=== PATIENT | female | born 1970 | race Caucasian/White ===

== ENCOUNTER → 2018-11-05 | Outpatient (CLI) | payer OTHER | END | disposition home or self-care (01) | LOC: CFH 15:16 | PROVIDERS: ATTEND Nurse Practitioner Family | DX: Z12.31 Encounter for screening mammogram for malignant neoplasm of breast (principal) | CPT/HCPCS: 77063; 77067 ==

== ENCOUNTER → 2019-11-01 | Outpatient (CLI) | payer OTHER | END | disposition home or self-care (01) | LOC: RAD 11:08 | PROVIDERS: ATTEND Internal Medicine Infectious Disease | DX: Z45.2 Encounter for adjustment and management of vascular access device (principal); T85.734A Infection and inflammatory reaction due to implanted electronic neurostimulator, generator, initial encounter; G43.909 Migraine, unspecified, not intractable, without status migrainosus; J45.909 Unspecified asthma, uncomplicated; G89.4 Chronic pain syndrome; F11.21 Opioid dependence, in remission; F41.9 Anxiety disorder, unspecified; F32.9 Major depressive disorder, single episode, unspecified; Z79.2 Long term (current) use of antibiotics | CPT/HCPCS: 36573; C1751 ==

== ENCOUNTER 2019-11-29 14:27 | Outpatient (CLI) | payer OTHER | END 2019-11-29 23:59 | disposition home or self-care (01) | LOC: RAD 14:27 | PROVIDERS: ATTEND Internal Medicine Infectious Disease | DX: I82.B11 Acute embolism and thrombosis of right subclavian vein (principal); I82.611 Acute embolism and thrombosis of superficial veins of right upper extremity; I82.621 Acute embolism and thrombosis of deep veins of right upper extremity; I82.A11 Acute embolism and thrombosis of right axillary vein ==

== ENCOUNTER 2020-05-23 12:31 | Emergency (ER) | payer OTHER ==
[~2020-05-23] VITALS: Ht 172.7 cm; Wt 91.4 kg
--- NOTE | 2020-05-23 13:46 | NUR ---
PT PRESENTS TO ED WITH C/O LEFT ARM SWELLING SINCE 05/11/20 , PT HAD A SURGERY THAT DAY TO HAVE NEUROSTIMULOR PLACED. PT STATES PIV WAS IN LEFT HAND, "BUT SHE ATTEMPTED SEVERAL OTHER PLACES IN THAT ARM BEFORE GETTING MY HAND." PT DENIES CP/SOB. +3 LEFT RADIAL PULSE NOTED, NO EDEMA OR DISCOLORATION APPRECIATED TO LEFT ARM BY THIS RN. PT AWAITING US RESULTS AND DISPO. PT A&O, RESPS EVEN AND UNLABORED, NADN. S/O AT BEDSIDE.
[2020-05-23 13:51] VITALS: BP 118/71
--- NOTE | 2020-05-23 15:00 | NUR ---
report given to SUKHDEV Hawkins pt to be discharged.
== END 2020-05-23 15:09 | disposition home or self-care (01) ==
LOC: ED 13:44
DX: I80.8 Phlebitis and thrombophlebitis of other sites (principal)
CPT/HCPCS: 99284

== ENCOUNTER → 2021-03-29 | Outpatient (CLI) | payer OTHER | END | disposition home or self-care (01) | LOC: CFH 10:02 | PROVIDERS: ATTEND Obstetrics & Gynecology | DX: Z12.31 Encounter for screening mammogram for malignant neoplasm of breast (principal) | CPT/HCPCS: 77063; 77067 ==